=== PATIENT | male | born 1995 ===

== ENCOUNTER 2017-06-05 09:51 | Emergency (ER) | payer MEDICAID ==
[2017-06-05 10:03] VITALS: RESP 18
[2017-06-05] MEDS ORDERED: Sodium Chloride 0.9% 1,000 ML IV ONE ×2 (10:22→11:55)
--- NOTE | 2017-06-05 10:22 | C.PDOC ---
History Of Present Illness 22 yr old male presents to the ER with complaints of sore throat, myalgia and fever for the past 2 days. Patient states he has tried OTC cold medicines with no relief. Admits to vomiting 1x [employer], now resolved. Denies chest pain, SOB, abdominal pain, headache, weakness or numbness. SORE THROAT, MYALGIA, FEVER X 2 DAYS. TM 103. NO RELIEF OTC COLD MEDS. +VOMIT X 1 [employer] NOW RESOLVED. EXAM MILD DIST NONTOXIC HEENT +PHARYNGEAL ERYTHEMA W EXUDATE; UVULA MIDLINE; NOSE CLEAR NECK SUPPLE LUNGS CTA B/L NO W/R/R REMAINDER NEG Time Seen by Provider: 06/05/17 10:16 Chief Complaint (Nursing): Flu-like Symptoms History Per: Patient History/Exam Limitations: no limitations Onset/Duration Of Symptoms: Days (2) Current Symptoms Are (Timing): Still Present Sick Contacts (Context): None Past Medical History Reviewed: Historical Data, Nursing Documentation, Vital Signs Vital Signs: Last Vital Signs Temp 99.1 F 06/05/17 12:42 Pulse 88 06/05/17 11:42 Resp 18 06/05/17 11:42 BP 94/54 L 06/05/17 11:42 Pulse Ox 97 06/05/17 11:42 - Medical History PMH: Migraine (never formally diagnosed) Family History: States: No Known Family Hx - Social History Hx Alcohol Use: No Hx Substance Use: No - Immunization History Hx Tetanus Toxoid Vaccination: No Hx Influenza Vaccination: No Hx Pneumococcal Vaccination: No Review Of Systems Except As Marked, All Systems Reviewed And Found Negative. Constitutional: Positive for: Fever (Subjective), Other ((+) Myalgia) ENT: Positive for: Throat Pain (Sore throat) Cardiovascular: Negative for: Chest Pain Respiratory: Negative for: Shortness of Breath Gastrointestinal: Positive for: Vomiting (1x [employer], now resovled). Negative for: Abdominal Pain Neurological: Negative for: Weakness, Numbness, Headache Physical Exam - Physical Exam Appears: Non-toxic, In Acute Distress (Mild) Skin: Warm, Dry, No Rash Head: Atraumatic, Normacephalic Ear(s): Bilateral: Normal Oral Mucosa: Moist Throat: Erythema (Pharyngeal ), Exudate, Other (Uvula midline.) Neck: Normal, Normal ROM, Supple Chest: Symmetrical, No Tenderness Cardiovascular: Rhythm Regular, No Murmur Respiratory: Normal Breath Sounds, No Rales, No Rhonchi, No Stridor, No Wheezing Gastrointestinal/Abdominal: Normal Exam, Soft, No Tenderness, No Guarding, No Rebound Extremity: Normal ROM, No Swelling Neurological/Psych: Oriented x3, Normal Speech, Normal Motor ED Course And Treatment - Laboratory Results Result Diagrams: 06/05/17 10:47 06/05/17 10:47 O2 Sat by Pulse Oximetry: 100 (RA) Pulse Ox Interpretation: Normal Reevaluation Time: 12:50 Reassessment Condition: Improved Medical Decision Making Medical Decision Making: PLAN: * Influenza * Rapid Strep * Tylenol PO * Toradol IVP * Sodium Chloride IV Disposition Counseled Patient/Family Regarding: Studies Performed, Diagnosis, Need For Followup, Rx Given - Disposition Referrals: YOUR,PMD [Other] Disposition: HOME/ ROUTINE Disposition Time: 12:51 Condition: IMPROVED Prescriptions: Amoxicillin [Amoxil 500 mg Cap] 500 mg PO BID #20 cap Instructions: Pharyngitis (ED), Influenza (ED) Forms: [employer] (Palestinian) - Clinical Impression Clinical Impression: Influenza-like illness, Pharyngitis - Scribe Statement The provider has reviewed the documentation as recorded by the Chantelleibamber Sullivan Provider Attestation: All medical record entries made by the Chantelleibamber were at my direction and personally dictated by me. I have reviewed the chart and agree that the record accurately reflects my personal performance of the history, physical exam, medical decision making, and the department course for this patient. I have also personally directed, reviewed, and agree with the discharge instructions and disposition.
[2017-06-05] MEDS ORDERED: Sodium Chloride 0.9% 1,000 ML ONE (10:46)
[2017-06-05 10:55] LABS: BASO % 0.2 % (0.0-2.0); EOS % 0.1 % (0.0-4.0); HEMATOCRIT 46.6 % (35.0-51.0); LYMPH # 0.7 K/uL (1.0-4.3); LYMPH % 3.6 % (20.0-40.0); MEAN CELL VOLUME 86.5 fL (80.0-94.0); MEAN CORPUSCULAR HEMOGLOBIN 30.4 pg (27.0-31.0); MEAN CORPUSCULAR HGB CONC 35.1 g/dL (33.0-37.0); MONO # 2.5 K/uL (0.0-0.8); MONO % 12.5 % (0.0-10.0); PLATELET COUNT 225 K/uL (130-400); RED CELL DISTRIBUTION WIDTH 12.8 % (11.5-14.5); WHITE BLOOD COUNT 20.2 K/uL (4.8-10.8)
[2017-06-05 11:03] LABS: ALB/GLOB RATIO 1.4 (1.0-2.1); ALKALINE PHOSPHATASE 107 U/L (38-126); ALT/SGPT 30 U/L (21-72); AST/SGOT 24 U/L (17-59); BLOOD UREA NITROGEN 15 mg/dL (9-20); CALCIUM 9.5 mg/dl (8.6-10.4); CARBON DIOXIDE 24 mmol/L (22-30); CHLORIDE 98 mmol/L (98-107); GFR AFRICAN-AMERICAN > 60; GLUCOSE,RANDOM 100 mg/dL (75-110); SODIUM 138 mmol/L (132-148); TOTAL PROTEIN 7.9 g/dL (6.3-8.3)
[2017-06-05 11:19] LABS: NEUTROPHIL 84 % (50-75); TOTAL CELLS COUNTED 100
[2017-06-05 11:28] LABS: VENOUS BLOOD GAS BASE EXCESS -1.6 mmol/L (0.0-2.0); VENOUS BLOOD GAS PCO2 32 mmHg (40-60); VENOUS BLOOD PH 7.44 (7.32-7.43)
[2017-06-05 11:42] VITALS: BP 94/54; PULSE 88
[2017-06-05 12:42] VITALS: TEMP 99.1
[2017-06-05 12:52] VITALS: O2SAT 100
[2017-06-05 13:29] LABS: RBC URINE 3 /hpf (0-3); URINE BILIRUBIN NEGATIVE (NEGATIVE); URINE BLOOD 1+ (NEGATIVE); URINE COLOR Yellow (YELLOW); URINE GLUCOSE (UA) NORMAL (Normal); URINE KETONE 1+ mg/dL (NEGATIVE); URINE LEUKOCYTE ESTERASE NEG Leu/uL (Negative); URINE PROTEIN NEGATIVE (NEGATIVE); URINE UROBILINOGEN NORMAL mg/dL (0.2-1.0); WBC URINE 1 /hpf (0-5)
== END 2017-06-05 13:18 | disposition home or self-care (01) ==
LOC: C.ER 09:51
DX: J02.9 Acute pharyngitis, unspecified (principal); F17.210 Nicotine dependence, cigarettes, uncomplicated
CPT/HCPCS: 80053; 81001; 82803; 83690; 85025; 87040; 87070; 87086; 87430; 87804; 96361; 96374; 99285; J1885; J7040

== ENCOUNTER 2018-02-08 11:15 | Emergency (ER) | payer MEDICAID ==
[2018-02-08 12:35] VITALS: RESP 18; O2SAT 98
[2018-02-08] MEDS ORDERED: Naproxen 550 mg Tab PO STA (12:59)
[2018-02-08] MEDS ORDERED: Albuterol 0.083% Inhal Sol (2.5 mg/3 mL) UD IH STA (12:59)
[2018-02-08] MEDS ORDERED: Naproxen 550 mg Tab PO ONE (13:08)
[2018-02-08] MEDS ORDERED: Albuterol 0.083% Inhal Sol (2.5 mg/3 mL) UD ONE (13:08)
--- NOTE | 2018-02-08 13:54 | RAD ---
HISTORY: cough, fever COMPARISON: Chest radiograph dated 11/11/2012 TECHNIQUE: Chest PA and lateral FINDINGS: LUNGS: No active pulmonary disease. PLEURA: No significant pleural effusion identified. No pneumothorax apparent. CARDIOVASCULAR: Normal. OSSEOUS STRUCTURES: No significant abnormalities. VISUALIZED UPPER ABDOMEN: Normal. OTHER FINDINGS: None. IMPRESSION: No active disease.
--- NOTE | 2018-02-08 14:44 | C.PDOC ---
History Of Present Illness 23 y/o male presents to the ER complaining of fever, sore throat, and body aches which has been present for the past 3 days. Patient states that he had 2 episodes of vomiting today. Patient denies having abdominal pain, diarrhea, and sick contacts. Time Seen by Provider: 02/08/18 12:38 Chief Complaint (Nursing): Flu-like Symptoms History Per: Patient History/Exam Limitations: no limitations Onset/Duration Of Symptoms: Days Current Symptoms Are (Timing): Still Present Severity: Moderate Past Medical History Reviewed: Historical Data, Nursing Documentation, Vital Signs Vital Signs: Last Vital Signs Temp 98.7 F 02/08/18 15:03 Pulse 73 02/08/18 15:03 Resp 18 02/08/18 15:03 BP 120/66 02/08/18 15:03 Pulse Ox 98 02/08/18 15:03 - Medical History PMH: Migraine (never formally diagnosed) Denies: Chronic Kidney Disease Surgical History: No Surg Hx Family History: States: No Known Family Hx - Social History Hx Alcohol Use: No Hx Substance Use: No - Immunization History Hx Tetanus Toxoid Vaccination: Yes Hx Influenza Vaccination: No Hx Pneumococcal Vaccination: No Review Of Systems Except As Marked, All Systems Reviewed And Found Negative. Constitutional: Positive for: Fever, Malaise. Negative for: Chills ENT: Positive for: Throat Pain Gastrointestinal: Positive for: Vomiting. Negative for: Abdominal Pain, Diarrhea Physical Exam - Physical Exam Appears: Non-toxic, Other (mild discomfort) Skin: Normal Color, Warm, Dry Head: Atraumatic, Normacephalic Eye(s): bilateral: Normal Inspection Ear(s): Bilateral: Normal Nose: Normal Oral Mucosa: Moist Throat: Erythema, Exudate (mild exudates), Other (swollen tonsils) Cardiovascular: Rhythm Irregular (tachycardiac) Respiratory: No Accessory Muscle Use, No Rales, No Rhonchi, Wheezing (scant expiratory wheezing) Gastrointestinal/Abdominal: Normal Exam, Soft, No Tenderness Neurological/Psych: Oriented x3, Normal Speech ED Course And Treatment O2 Sat by Pulse Oximetry: 98 (RA) Pulse Ox Interpretation: Normal Progress Note: CXR and Rapid Strep ordered. Patient treated with Disposition Counseled Patient/Family Regarding: Studies Performed, Diagnosis, Need For Followup, Rx Given - Disposition Referrals: [facility] [Outside] Disposition: HOME/ ROUTINE Disposition Time: 04:45 Condition: STABLE Additional Instructions: FOLLOW UP WITH YOUR DOCTOR/CLINIC IN 1-2 DAYS USE MEDICATIONS DIRECTED DRINK PLENTY OF FLUIDS AND GET REST RETURN TO EMERGENCY ROOM IF SYMPTOMS WORSEN Prescriptions: Albuterol HFA [Ventolin HFA 90 mcg/actuation (8 g)] 0.09 mg IH Q4 PRN #1 puff PRN Reason: Wheezing Benzonatate [Tessalon Perles] 100 mg PO BID PRN #15 sgl PRN Reason: Cough Naproxen 375 mg PO BID PRN #20 tablet PRN Reason: pain Ondansetron [Zofran Odt] 4 mg PO Q8 PRN #10 odt PRN Reason: Nausea/Vomiting Instructions: Viral Syndrome (DC) Forms: [employer] (Azeri) Print Language: INDONESIAN - Clinical Impression Clinical Impression: Viral syndrome
[2018-02-08 15:03] VITALS: BP 120/66; PULSE 73; TEMP 98.7
== END 2018-02-08 15:03 | disposition home or self-care (01) ==
LOC: C.ER 11:15
DX: B34.9 Viral infection, unspecified (principal)

== ENCOUNTER 2018-09-16 10:53 | Emergency (ER) | payer MEDICAID, OTHER ==
[2018-09-16 11:17] VITALS: BP 129/72; PULSE 75; RESP 18; TEMP 98.1; O2SAT 97
--- NOTE | 2018-09-16 11:27 | C.PDOC ---
History Of Present Illness 23 year old male presents to the emergency department with complaints of left shoulder pain, status-post being involved in an accident 3 years ago. Patient states that he fell through a glass window and glass was lodged in his left shoulder. He went to an ED at the time that removed some but not all pieces of glass. Upon visiting a specialist (whose name he cannot recall), he was told that the remaining piece of glass would "come out on its own". Patient presents to the ED today due to worsening pain to the area and drainage from a small open wound that has been present for the last year. He denies fever, chills, numbness, paresthesias, weakness, or any other associated symptoms. Time Seen by Provider: 09/16/18 11:15 Chief Complaint (Nursing): Upper Extremity Problem/Injury History Per: Patient History/Exam Limitations: no limitations Onset/Duration Of Symptoms: Hrs Current Symptoms Are (Timing): Still Present Quality: "Pain" Past Medical History Reviewed: Historical Data, Nursing Documentation, Vital Signs Vital Signs: Last Vital Signs Temp 98.1 F 09/16/18 11:09 Pulse 75 09/16/18 11:09 Resp 18 09/16/18 11:09 BP 129/72 09/16/18 11:09 Pulse Ox 97 09/16/18 11:09 - Medical History PMH: Asthma, Migraine (never formally diagnosed) Denies: Chronic Kidney Disease Surgical History: No Surg Hx Family History: States: No Known Family Hx - Social History Hx Alcohol Use: Yes Hx Substance Use: No - Immunization History Hx Tetanus Toxoid Vaccination: No Hx Influenza Vaccination: Yes Hx Pneumococcal Vaccination: No Review Of Systems Except As Marked, All Systems Reviewed And Found Negative. Constitutional: Negative for: Fever, Chills Eyes: Negative for: Vision Change Cardiovascular: Negative for: Chest Pain, Palpitations, Light Headedness Respiratory: Negative for: Cough, Shortness of Breath Gastrointestinal: Negative for: Nausea, Vomiting, Abdominal Pain, Diarrhea, Constipation Musculoskeletal: Positive for: Shoulder Pain (left) Skin: Positive for: Other (open area of skin left shoulder). Negative for: Rash Neurological: Negative for: Weakness, Numbness, Headache, Dizziness Physical Exam - Physical Exam Appears: Well, Non-toxic, No Acute Distress Skin: Warm, Dry Head: Atraumatic, Normacephalic Eye(s): bilateral: Normal Inspection, PERRL, EOMI Nose: Normal Neck: Normal, Supple Chest: Symmetrical, No Tenderness Cardiovascular: Rhythm Regular, No Murmur Respiratory: Normal Breath Sounds, No Rales, No Rhonchi, No Wheezing Back: Normal Inspection, No CVA Tenderness, No Vertebral Tenderness Extremity: Normal ROM (at shoulders bilaterally), Tenderness (tenderness to palpation at the left shoulder over open wound), Other (1cm diameter area of induration on posterior left shoulder with small, central opening. No active drainage. No fluctuance. ) Extremity: Bilateral: No Pedal Edema, Normal Color And Temperature, Normal ROM Pulses: Left Radial: Normal, Right Radial: Normal Neurological/Psych: Oriented x3, Normal Speech, Normal Cognition, Normal Motor, Normal Sensation Gait: Steady ED Course And Treatment O2 Sat by Pulse Oximetry: 97 (RA) Pulse Ox Interpretation: Normal - Other Rad Left Shoulder Xray X-Ray: Viewed By Me, Read By Radiologist Interpretation: FINDINGS: BONES: No fracture or dislocation seen. JOINTS: Normal. Glenohumeral and acromioclavicular joints preserved. No osteoarthritis. SOFT TISSUES: Multiple radiopaque foreign bodies are present before largest are compatible with shards of glass. OTHER FINDINGS: None. IMPRESSION: Large soft tissue foreign body pieces compatible with shards of glass projecting lateral to the humerus an inferior to the acromion. Technologist has noted that the patient reports having had trauma few years ago where pieces of glass 1 into a shoulder. More recently patient fell and has pain and numbness in his fingers occasionally. No comparisons are available. The shards of glass are large 1 piece measures 28 x 2 mm, another measures 49 x 12 mm. Another measures 25 by 6 mm and another measures 30 by 5 mm smaller additional punctate sliver like radiopaque foreign body material likely glass as well is seen along the inferior aspect of the larger shard pieces. No fracture or dislocation seen. Medical Decision Making Medical Decision Making: Plan: * Toradol 60mg IM * XR Left Shoulder 11:45 Xray shows retained foreign bodies, suspicious for glass; will call for surgical evaluation. 12:[address] Ross reviewed diagnostic studies and examined patient at bedside. No intervention indicated today. Recommends followup with Dr. Butler in her office for elective foreign body removal. Plan of care and diagnostic studies discussed with patient. Strict instructions given regarding importance of followup, prescription use, and signs/symptoms to return, including fever, chills, worsening redness, tenderness, or drainage to the wound, worsening shoulder pain, or any other new/worsening symptoms. Patient verbalized understanding of discussion. Patient ambulating with steady gait, A&Ox3, with vitals signs stable for discharge. Disposition Discussed With DrJoelle: Jack Ross Comment: Recommends followup with general surgery in the office. Doctor Will See Patient In The: ED - Disposition Referrals: Ana Lilia Butler MD [Staff Provider] - Ronnie Hills Jr., MD [Staff Provider] - Disposition: HOME/ ROUTINE Disposition Time: 12:20 Condition: GOOD Additional Instructions: Take bactrim every 12 hours for 1 week Take ibuprofen as needed for pain Followup with general surgery within 2 days Followup with primary doctor within 2 days Return to ER with any new/worsening symptoms Prescriptions: Ibuprofen [Motrin Tab] 600 mg PO Q8H PRN #30 tab PRN Reason: Pain, Moderate (4-7) Sulfamethoxazole/Trimethoprim [Bactrim DS 800 mg-160 mg] 1 tab PO Q12H #14 tab Instructions: Foreign Body in Skin Forms: General Discharge Instructions, [facility] (Salvadorean), Work Excuse - Clinical Impression Clinical Impression: Retained foreign body of shoulder - PA / BULB TESTER / Resident Statement MD/DO has reviewed & agrees with the documentation as recorded. - Scribe Statement The provider has reviewed the documentation as recorded by the Scribe (Yury Dickinson) All medical record entries made by the Scribe were at my direction and personally dictated by me. I have reviewed the chart and agree that the record accurately reflects my personal performance of the history, physical exam, medical decision making, and the department course for this patient. I have also personally directed, reviewed, and agree with the discharge instructions and disposition.
--- NOTE | 2018-09-16 12:30 | RAD ---
Date of service: 09/16/2018 PROCEDURE: Radiographs of the Left Shoulder HISTORY: rule out foreign body COMPARISON: No prior. FINDINGS: BONES: No fracture or dislocation seen. JOINTS: Normal. Glenohumeral and acromioclavicular joints preserved. No osteoarthritis. SOFT TISSUES: Multiple radiopaque foreign bodies are present before largest are compatible with shards of glass OTHER FINDINGS: None. IMPRESSION: Large soft tissue foreign body pieces compatible with shards of glass projecting lateral to the humerus an inferior to the acromion. Technologist has noted that the patient reports having had trauma few years ago where pieces of glass 1 into a shoulder. More recently patient fell and has pain and numbness in his fingers occasionally. No comparisons are available. The shards of glass are large 1 piece measures 28 x 2 mm, another measures 49 x 12 mm. Another measures 25 by 6 mm and another measures 30 by 5 mm smaller additional punctate sliver like radiopaque foreign body material likely glass as well is seen along the inferior aspect of the larger shard pieces. No fracture or dislocation seen.
== END 2018-09-16 12:33 | disposition home or self-care (01) ==
LOC: C.ER 10:53
DX: M79.5 Residual foreign body in soft tissue (principal)
CPT/HCPCS: 73030; 96372; 99284; J1885